=== PATIENT | female | born 1990 | race African-American/Black ===

== ENCOUNTER 2019-10-13 21:21 | Emergency (ER) | payer OTHER ==
[2019-10-13 21:25] VITALS: BP 129/77; PULSE 87; TEMP 98.2; BMI 31.0
[2019-10-13 22:54] LABS: EPI CELLS 1.1 /HPF (0-5/HPF); HYALINE CASTS 7 /lpf (0-8); PH,URINE 6.5 (5.0-8.0); URINE APPEARANCE CLOUDY; URINE BILIRUBIN NEGATIVE (NEGATIVE); URINE COLOR YELLOW; URINE GLUCOSE (UA) NEGATIVE (NEGATIVE); URINE KETONE NEGATIVE (NEGATIVE); URINE LEUK ESTERASE 2+ (NEGATIVE); URINE NITRITE NEGATIVE (NEGATIVE); URINE PROTEIN 1+ (NEGATIVE); URINE RBC 39 /hpf (0-4); URINE UROBILINOGEN 0.2 mg/dL (0.2-1.0); URINE WBC 153 /hpf (0-5)
[2019-10-13] MEDS ORDERED: CEPHALEXIN MONOHYDRATE 500 MG CAPSULE (UD) PO ONE (23:46)
[2019-10-13] MEDS ORDERED: CEPHALEXIN MONOHYDRATE 500 MG CAPSULE (UD) ONE (23:56)
--- NOTE | 2019-10-14 00:03 | PDOC ---
History of Present Illness - General Chief Complaint: Vaginal Bleeding Stated Complaint: VAGINAL BLEEDING Time Seen by Provider: 10/13/19 21:59 History Source: Patient Exam Limitations: No Limitations Past History - Past Medical History Allergies/Adverse Reactions: Allergies Allergy/AdvReac Type Severity Reaction Status Date / Time No Known Allergies Allergy Verified 10/13/19 21:25 Home Medications: Ambulatory Orders Cephalexin [Keflex] 500 mg PO Q12H #13 capsule 10/14/19 COPD: No - Reproductive History Is Patient Now?: Yes Therapeutic (s) & number: No - Psycho Social/Smoking Cessation Hx Smoking History: Never smoked *Physical Exam - Vital Signs Last Vital Signs Temp Pulse Resp BP Pulse Ox 98.2 F 87 18 129/77 100 10/13/19 21:22 10/13/19 21:22 10/13/19 21:22 10/13/19 21:22 10/13/19 21:22 - Physical Exam General Appearance: No: Apparent Distress Respiratory/Chest: positive: Lungs Clear, Normal Breath Sounds. negative: Respiratory Distress Cardiovascular: positive: Regular Rhythm, Regular Rate, S1, S2. negative: Murmur Gastrointestinal/Abdominal: positive: Normal Bowel Sounds, Soft. negative: Tender, Distended, Guarding, Rebound Neurologic: positive: Alert, Normal Mood/Affect ED Treatment Course - ADDITIONAL ORDERS Additional order review: Laboratory Results 10/13/19 22:22 Urine Color Yellow Urine Appearance Cloudy Urine pH 6.5 Ur Specific [place] 1.007 L Urine Protein 1+ H Urine Glucose (UA) Negative Urine Ketones Negative Urine Blood 3+ H Urine Nitrite Negative Urine Bilirubin Negative Urine Urobilinogen 0.2 Ur Leukocyte Esterase 2+ H Urine WBC (Auto) 153 Urine RBC (Auto) 39 Urine Casts (Auto) 7 U Epithel Cells (Auto) 1.1 Urine Bacteria (Auto) 17.0 - RADIOLOGY Radiology Studies Ordered: Category Date Time Status <14WKS US [US] Stat Ultrasound 10/13/19 22:09 Taken - Medications Given in the ED: ED Medications Discontinued Medications Generic Name Dose Route Start Last Admin Trade Name Freq PRN Reason Stop Dose Admin Cephalexin HCl 500 mg 10/13/19 23:46 10/13/19 23:57 Keflex - PO 10/13/19 23:47 500 mg ONCE ONE Administration Medical Decision Making - Medical Decision Making 28-year-old female (hx of 2 abortions), currently 10 weeks 5 days , presents with light vaginal bleeding from today along with mild lower abdominal cramps. Last check up for was 09/11 when she had normal ultrasound. Patient was blood type O (Rh positive). Also having dysuria. Denies fever, sob, cp, vomiting. Pelvic ultrasound shows IUP at 12 weeks 2 days heart rate at 154 bpm UA shows evidence of UTI Patient started on Keflex 10/13/19 23:58 Discharge - Discharge Information Problems reviewed: Yes Clinical Impression/Diagnosis: UTI (urinary tract infection) Qualifiers: Urinary tract infection type: acute cystitis Hematuria presence: without hematuria Qualified Code(s): N30.00 - Acute cystitis without hematuria Condition: Stable Disposition: HOME - Admission No - Additional Discharge Information Prescriptions: Cephalexin [Keflex] 500 mg PO Q12H #13 capsule Prescription Drug Monitoring Program (I-STOP) results: I-STOP not reviewed - Follow up/Referral - Patient Discharge Instructions Patient Printed Discharge Instructions: DI for Urinary Tract Infection (UTI) Additional Instructions: Thank you for choosing [facility]. It was a pleasure taking care of you. You were found to have a urine infection for which you were prescribed antibiotics Please take antibiotics as prescribed Drink at least 2 to 3 L of water daily Follow-up with your [employer] Return to the Emergency Department if your symptoms worsen or persist, you have fever, heavier bleeding or other concerning symptoms. - Post Discharge Activity
== END 2019-10-14 00:18 | disposition home or self-care (01) ==
LOC: JER 21:21
DX: N30.00 Acute cystitis without hematuria (principal); O26.891 Other specified pregnancy related conditions, first trimester; Z3A.10 10 weeks gestation of pregnancy
CPT/HCPCS: 76801-TC; 81003; 87086; 99282-25